=== PATIENT | male | born 1965 | race Caucasian/White ===

== ENCOUNTER → 2021-08-18 11:07 | Outpatient (BNVA) | payer BC, SELFPAY | PROVIDERS: Referring Provider Nurse Practitioner; Visit Provider Specialist | DX: M25.511 Pain in right shoulder (principal) | CPT/HCPCS: 73030 ==

== ENCOUNTER → 2021-09-11 00:01 | Outpatient (BNVA) | payer BC, SELFPAY | PROVIDERS: Visit Provider Orthopaedic Surgery | DX: Z20.822 Contact with and (suspected) exposure to COVID-19 (principal); Z01.812 Encounter for preprocedural laboratory examination | CPT/HCPCS: 87635 ==

== ENCOUNTER 2021-09-18 07:25 | Day surgery (SDC) | payer BC, SELFPAY ==
[2021-09-17 10:12] VITALS: BMI 26.5
[2021-09-18] VITALS (10 sets, daily range): BP systolic 104–127; BP diastolic 74–91; PULSE 56–78; RESP 12–18; TEMP 36.2–36.5; O2SAT 94–100
[2021-09-18] MEDS: sodium chloride 0.9% 1,000 ML 30 ML IV (07:52)
[2021-09-18] MEDS: acetaminophen 500 mg Tablet 1000 MG PO (07:52)
--- NOTE | 2021-09-18 08:34 | W.PM.OPSUD ---
Surgery/Procedure H&P Update DATE OF PROCEDURE: September 18, 2021 DATE H&P PERFORMED: 09/03/21 H&P UPDATE INFORMATION: I have reviewed H&P completed within last 30 days PREOP DIAGNOSIS: Right subscapularis Tear, Superior labral tear PLANNED PROCEDURE: Operation Date: 09/18/21 09:05 Proposed Procedures p Shoulder Arthroscopy 45054/s46.019a/s(Right) - MD liz Vásquez SLAP Repair(Right) - Guillermo Massey MD
--- NOTE | 2021-09-18 08:52 | ANES.PREANE2 ---
Pre-Anesthetic Assessment Height/Weight: Height 1.78 m Weight 83.915 kg Temp Pulse Resp BP Pulse Ox 97.7 F 78 18 119/84 98 09/18/21 07:37 09/18/21 07:37 09/18/21 07:37 09/18/21 07:37 09/18/21 07:37 Preop Diagnosis: Right subscapularis Tear, Superior labral tear Operation Date: 09/18/21 09:05 Proposed Procedures p Shoulder Arthroscopy 17850/s46.019a/s(Right) - Guillermo Massey MD s SLAP Repair(Right) - Guillermo Massey MD Familial anesthetic complications: Wakes up slow Was Beta Alexia taken within 24 hours: N/A Was Clonidine taken within 24 hours: N/A Last intake: Intake Last Liquid Date 09/17/21 Last Liquid Time 18:00 Last Solid Date 09/17/21 Last Solid Time 18:00 Social No alcohol and No tobacco Exam alert, oriented x 3, clear to auscultation bilaterally and regular rate & rhythm Airway Submandibular: within normal limits Cervical ROM: within normal limits Mallampati: Class III Dentition: chipped History/ROS No significant history except as noted and No significant complaints Pulmonary None reported CV/HEM None reported None reported Hepatic None reported GI None reported Metabolic None reported Musc/skel Osteoarthritis/DJD Neuropsych None reported Anesthetic Plan ASA status: 1 Anesthesia: Anesthesia Evaluation, General and Regional (specify below) (Intrascalene block for post op pain control) Other: We discussed risk and benefits of general anesthesia including PONV, sore throat (sometimes severe), corneal abrasion, positioning and peripheral nerve injuries, life threatening allergic reaction, post operative ICU admission requiring prolonged intubation, stroke, heart attack, , and rare incidences of recall. We discussed risk and benefits of nerve block for post op pain control including management of pain and titration of pain medications as signs/symptoms of nerve block wearing off begin to appear and/or prior bed. We discussed risk of failed nerve block, vascular injury or other vital structure injury, abscess/infection, LAST, and nerve injury. Patient consents to proceed with general anesthesia with intrascalene block for post op pain control Risk of > 500 ml blood loss (7ml/kg in children): No Medications/Allergies Home Medications Medication Instructions Recorded Confirmed Last Taken Type oxycodone 5 mg tablet 5 mg PO Q4H PRN #40 tab 09/18/21 Unknown Rx Allergies Allergy/AdvReac Type Severity Reaction Status Date / Time diazepam [From Valium] Allergy vomiting Verified 09/18/21 07:31 Current Medications Generic Name Dose Route Start Last Admin Trade Name Freq PRN Reason Stop Dose Admin Sodium Chloride 1,000 mls @ 30 mls/hr 09/18/21 07:30 09/18/21 07:52 Sodium Chloride 0.9% IV 09/19/21 07:29 30 mls/hr .Q24H MIGUEL Administration PFSH Anesthesia Social History Smoking and tobacco status: never smoked Data Anesthesia Cardiac Studies: No Data to Display
--- NOTE | 2021-09-18 09:38 | ANES.PROC ---
Anesthesia Procedures Procedure/Date: 09/18/21 Nerve Block ^: Nerve Block 1: Main Anesthesia: general anesthesia Time Out Performed: Yes Consent: requested by attending/covering physician and from patient Nerve block location: interscalene Anesthesia monitors applied: pulse oximetry and BP cuff Nerve block position: semi sitting Anesthetic Used: bupivacaine 0.5% Amount of anesthesia used (mL): 18 Ultrasound used to: recognize landmarks, visualize and ID brachial plexus and visualize and ID interscalene groove Nerve Stimulator Used?: Yes Interscalene/Femoral BLK: 2 stimuplex 22 g needle used for position and inplane approach Injection: neg aspiration of heme Patient Tolerated Procedure: well Complications: none Additional Comments: After time out sterile prep, using sterile technique, and using real time US guidance for target selection needle was inserted with real time visualization of needle entry and real time visualization of needle advancement toward intended target. Negative aspiration. LA injected incrementally with negative aspiration every 3 cc and real time US visualization of LA spread throughout procedure. Tolerated well. Image(s) saved.
--- NOTE | 2021-09-18 10:16 | SUR.OPER ---
1005 family updated of surgical status
--- NOTE | 2021-09-18 11:51 | PM.OP ---
Operative Report Date of procedure: September 18, 2021 Pre-op diagnosis: Preop Diagnosis Right subscapularis Tear, Superior labral tear Post-op diagnosis: Superior labral tear right shoulder, normal subscapularis tendon Post-op findings: The patient had a degenerative extending from approximately the 10:00 to 2 o'clock position. His rotator cuff including his subscapularis appeared healthy on arthroscopic exam Procedure done: Arthroscopic assisted right biceps tenodesis Implants: [employer] Q fix x2 Surgeon: Guillermo Massey Anesthesia: General and Nerve Block (Interscalene block) Estimated blood loss (mL): 10 Findings: The patient had a degenerative extending from approximately the 10:00 to 2 o'clock position. His rotator cuff including his subscapularis appeared healthy on arthroscopic exam. His humeral head revealed but no exposed subchondral bone was identified over the humeral head or glenoid. Incomplete cartilage loss Brief History: Mr. Farfan had right a tear of his inferior subscapularis and superior labrum on MRI with arthroscopic evaluation was chosen to evaluate and potentially treat the subscapularis tear and a superior labral associated weakness. Procedure: Mr. Farfan was taken to the operating room after a interscalene block was provided by anesthesia/he was given 2 g of Ancef and prepped and draped in the lateral position with his right arm in 15 pounds of traction. A timeout was performed. A posterior portal was made 2 cm inferior and medial to the posterior corner of the acromion. A scope cannula and trocar were driven into the glenohumeral joint and 8 mm inflow cannula was placed anteriorly. Initial attention was paid to the articular rotator cuff and in particular the subscap tendon. A well-defined healthy subscapularis tendon was identified from within the glenohumeral joint. The superior scopic subscapularis as well appeared to be healthy. Attention was then focused on the rotator cuff attachment. Utilizing a probe the patient was noted to have substantial detachment for approximately 10:00 to the 2 o'clock position consisting of degenerative appearing medialized attachment. A decision was made to proceed with the biceps tenodesis. Spinal needle was used to pass a Prolene suture through the biceps tendon and it was secured with half hitches. The [employer]rewolf probe was then used to release the biceps from the superior labrum. A 3 cm incision was made in the anterior axillary fold dissection carried down to the biceps tendon which was identified and retracted in the wound. 2Q fix anchors were placed in the distal bicipital groove. The sutures were secured around the bicep in a luggage type fashion with a free needle passed again through the biceps. Approxi-4 cm of proximal biceps was excised. The wound was irrigated with saline. Deep tissues were closed with 0 Vicryl. The skin was closed with interrupted 3-0 Prolene arthroscopy portals with 3-0 Prolene. Xeroflo gauze, 4 x 4's, and Medipore tape were applied. Patient was placed in a sling, extubated, and taken recovery in stable condition.
--- NOTE | 2021-09-18 14:27 | ANE.PACU2 ---
Inpatient post-anesthesia follow up: Airway intact: Yes Vital signs: Temperature 97.5 F Pulse Rate 64 Respiratory Rate 16 Blood Pressure 111/74 Pulse Oximetry 99 Oxygen Delivery Me thod Room Air Oxygen Flow Rate Fraction of Inspir ed Oxygen Hydration adequate: Yes Nausea and vomiting: No Pain level: 1 Mental status: Baseline
== END 2021-09-18 12:18 | disposition home or self-care (01) ==
PROVIDERS: Visit Provider Orthopaedic Surgery
PROC: (CPT 29805; principal; 2021-09-18 09:05)
PROC: (CPT 23430; 2021-09-18 09:05)
DX: S46.011A Strain of muscle(s) and tendon(s) of the rotator cuff of right shoulder, initial encounter (principal); X58.XXXA Exposure to other specified factors, initial encounter
CPT/HCPCS: 29827; 64415; 76942; C1713; J0690; J1100; J2405; J2704; J2710; J3010; J3490; J7030

== ENCOUNTER 2024-01-21 16:40 | Outpatient (CLI) | payer BC, SELFPAY ==
--- NOTE | 2024-01-21 16:50 | XR_ITS ---
WS: [id number] XR foot LT min 3V* [id number] REASON FOR EXAM: Pain in left foot (M79.672) FINDINGS: No fracture or focal bone lesion. No periosteal reaction Joint spaces of the forefoot are intact and well preserved. Joint spaces in the midfoot are intact and well preserved. Joint spaces of the hindfoot are intact and well preserved. Small calcaneal anterior plantar enthesophyte. XR/XR foot LT min 3V* [id number] IMPRESSION: Small calcaneal enthesophyte.
== END 2024-01-21 16:41 | disposition home or self-care (01) ==
LOC: RAD 16:44
PROVIDERS: PCP Nurse Practitioner Family; Visit Provider Nurse Practitioner Family
DX: M77.32 Calcaneal spur, left foot (principal)
CPT/HCPCS: 73630